=== PATIENT | female | born 1935 | race Caucasian/White ===

== ENCOUNTER → 2025-01-02 12:06 | Outpatient (CLI) | payer MEDICARE, OTHER, SELFPAY ==
--- NOTE | 2025-01-02 12:13 | DI.RAD.S_ITS ---
PROCEDURE: FL JOINT INJECTION LARGE LT hip INDICATIONS: Osteoarthritis left hip COMPARISON: None. TECHNIQUE: The indications, alternatives, benefits, risks, and complications of the procedure were explained to the patient. Written informed consent was obtained and placed in the chart. The patient was placed in an appropriate position on the fluoroscopy table, and a site was chosen for percutaneous access under fluoroscopic guidance. The site was prepped and draped in a sterile fashion. Local anesthetic was administered using a 1% lidocaine solution. A 22g spinal needle was then used to access the symptomatic joint. Intra-articular location of the needle tip was confirmed by injecting a small amount of contrast, followed by steroid administration. The needle was then withdrawn, and a bandage applied to the puncture site. FINDINGS: Joint injected: Left hip Medications injected: For mL of 40 mg/mL Kenalog and 1 mL 0.5% Ropivacaine mixture. Patient's pain before injection: 5 out of 10. Patient's pain after injection: 0 out of 10. Complications: None. IMPRESSION: Successful fluoroscopically guided administration of steroid and anaesthetic solution into the left hip joint. Dictated by: Sid Chew M.D. on 01/02/2025 at 20:52 Approved by: Sid Chew M.D. on 01/02/2025 at 20:54
[2025-01-02] MEDS: LIDOCAINE 1% 20 ML INJ (13:00)
[2025-01-02] MEDS: TRIAMCINOLONE 40 MG/ML VIAL INTRA-ARTI (13:01)
== END ==
PROVIDERS: Referring Provider Radiology Diagnostic Radiology; Visit Provider Radiology Diagnostic Radiology
DX: M16.12 Unilateral primary osteoarthritis, left hip (principal)
CPT/HCPCS: 20610; 77002; Q9967